=== PATIENT | female | born 1965 | race Hispanic/Latino ===

== ENCOUNTER 2019-08-03 09:49 | Emergency (ER) | payer OTHER, SELFPAY ==
[2019-08-03 10:14] VITALS: BP 131/85; PULSE 90; RESP 16; TEMP 36.9; O2SAT 99
--- NOTE | 2019-08-03 10:42 | ED.URI ---
HPI - URI/Sore Throat General Chief Complaint: Upper Respiratory Infection Stated Complaint: SWOLLEN THROAT Time Seen by Provider: 08/03/19 10:42 Source: patient Mode of arrival: ambulatory Limitations: no limitations History of Present Illness HPI Narrative: A 54 y/o female, who is a nonsmoker/nondrinker, presents to with c/o a cough for 1 week. Pt notes that she has a PMHx of asthma and has been using her inhaler at home. 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 Pt woke up suddenly at 2:00 AM this morning and felt like my trachea was closed. Pt experienced difficulty swallowing and SOB at this time, but this has since resolved. Pt is not around any pets or smokers at home. Pt took Benadryl last night. She denies a sore throat, hoaresness, rash , wheeze, Cp , calf pain/ edema and recently being on steroids. Pertinent past history: asthma Onset (ago): week(s) (1) Treatments prior to arrival: other (Benadryl) Related Data Home Medications Medication Instructions Recorded Confirmed albuterol sulfate 90 mcg INHALATION QID 08/03/19 08/03/19 losartan 50 mg PO DAILY 08/03/19 08/03/19 promethazine-DM 6.25 ml PO BID 08/03/19 08/03/19 Allergies Allergy/AdvReac Type Severity Reaction Status Date / Time No Known Allergies Allergy Unverified 08/03/19 10:10 Review of Systems Review of Systems: Narrative: General/Constitutional: Denies: weight loss,fever Eyes: Denies: Redness,discharge Ears/Nose/Throat: Reports: difficulty swallowing (resolved); Denies: Epistaxis,ear discharge, sore throat Respiratory: Reports: a cough, SOB (resolved); Denies: Hemoptysis Gastrointestinal: Denies: Vomiting, Bleeding-rectal Skin: Denies: Lumps, eruption Neurologic: Denies: Focal Weakness,Sz Hematologic: Denies: Petechiae/Purpura Psychiatric: Denies: Suicidal ideation All systems reviewed & are unremarkable except as noted in HPI and below PMFSH Past Medical History Medical History (Updated 08/03/19 @ 11:05 by Ana Paula Abebe) Asthma HTN (hypertension) Surgical History Surgical History Previous section x4 Social History Social History (Updated 08/03/19 @ 11:04 by Ana Paula Abebe) Smoking status: Never smoker Alcohol intake: never Comments PCP: Dr. Tee At time of signature, agree with nursing past medical, surgical, social and family history. There is no relevant family history pertinent to the presenting complaint Exam Narrative: Exam Narrative: General Appearance: Well appearing, Well nourished EYE: PERRLA, Conjunctiva clear Ears: Auditory canal normal, TM normal Nose: Rhinorrhea, Mucousal erythema Mouth/Throat: MM moist, Uvula midline, Pharyngeal erythema Neck: Supple, No adenopathy Respiratory: No respiratory distress, Breath sounds equal, Clear to auscultation Cardiovascular: RRR, No JVD Musculoskeletal: Non tender, Normal strength Skin: Warm, Dry Neurological: A&O x3, CN II-XII intact Psychiatric: Normal mood, Normal affect Course Vital Signs Vital signs: Vital Signs Temperature 98.5 F 08/03/19 10:14 Pulse Rate 90 08/03/19 10:14 Respiratory Rate 16 08/03/19 10:14 Blood Pressure 131/85 08/03/19 10:14 Pulse Oximetry 99 08/03/19 10:14 Temperature 98.5 F 08/03/19 10:14 Pulse Rate 90 08/03/19 10:14 Respiratory Rate 16 08/03/19 10:14 Blood Pressure 131/85 08/03/19 10:14 Pulse Oximetry 99 08/03/19 10:14 MDM - URI/Sore Throat Lab Data Labs: Influenza A Screen Negative Reference Range: Negative Influenza B Screen Negative Reference Range: Negative Discharge Plan Discharge Clinical Impression: History of asthma Upper respiratory infection Qualifiers: URI type: acute laryngotracheitis Qualified Code(s): J04.2 - Acute laryngotracheitis Patient Disposition: Home, Self-Care Condition: Stable Instr
== END 2019-08-03 11:03 | disposition home or self-care (01) ==
PROVIDERS: Emergency Provider Emergency Medicine; PCP Internal Medicine
DX: J04.2 Acute laryngotracheitis (principal); J45.909 Unspecified asthma, uncomplicated; I10 Essential (primary) hypertension
CPT/HCPCS: 87804; 99213; G0463

== ENCOUNTER → 2020-09-23 08:27 | Outpatient (CLI) | payer OTHER, SELFPAY ==
--- NOTE | ~2020-09-23 | US_ITS ---
EXAMINATION: US pelvic complete w TV DATE: 09/23/2020 11:11 INDICATION: Lower abdominal pain and fullness Comparison:No prior studies for comparison. TECHNIQUE: Multiple transabdominal and endovaginal sonographic images of the pelvis performed. FINDINGS: The uterus measures 10.5 x 4.6 x 6.4 cm. The endometrial complex measures 8 mm. The right ovary measures 2.7 x 2 x 2.3 cm and the left ovary measures 1.9 x 1.5 x 1.9 cm. There are small follicles in each ovary. Normal doppler signal in both ovaries. There is no free fluid in the pelvis. There are no abnormal masses seen on either side. IMPRESSION: 1. Unremarkable pelvic ultrasound. Reviewed, dictated and finalized at location B.
--- NOTE | ~2020-09-23 | MMUS_ITS ---
EXAMINATION: MM diagnostic ken BI w moreno, US breast RT limited HISTORY: Follow-up for probably benign right breast mass, patient was due 12 months ago for follow-up . TECHNIQUE: Craniocaudal, mediolateral, and mediolateral oblique 3-D tomosynthesis images of the breas ts were performed and synthetic 2-D images were generated. Spot compression views of the right breast are also obtained. CAD analysis was submitted and interpreted. High resolution limited right breast ultrasound was performed. COMPARISON: 02/26/2019, 04/28/2012 BREAST PARENCHYMAL COMPOSITION: There are scattered areas of fibroglandular density. FINDINGS: MAMMOGRAPHIC FINDINGS: Right breast: There is a stable 1.3 x 0.7 cm oval, obscured, equal density mass in the middle third o f the upper inner quadrant of the breast at the 1:00 location 5 cm from the nipple. No suspicious arc hitectural distortion or calcification are identified. Left breast: There is no evidence of suspicious mass, calcification, or architectural distortion to suggest malignancy. There has been no suspicious interval change. ULTRASOUND: There are clustered microcysts at the 1:00 location 5 cm from the nipple without significant change s juan c the prior examination 18 months ago. IMPRESSION: 1. No mammographic or sonographic evidence of malignancy. 2. Recommend routine screening mammography in one year. BI-RADS Category 2: Benign finding(s). Reviewed, dictated and finalized at location A. IMPRESSION: 1. No mammographic or sonographic evidence of malignancy. 2. Recommend routine screening mammography in one year. BI-RADS Category 2: Benign finding(s).
== END ==
PROVIDERS: PCP Internal Medicine; Visit Provider Internal Medicine
DX: N60.01 Solitary cyst of right breast (principal); R10.30 Lower abdominal pain, unspecified
CPT/HCPCS: 76642; 76830; 76856; 77062; 77066; G0279

== ENCOUNTER 2020-10-29 09:08 | Outpatient (CLI) | payer OTHER, SELFPAY ==
--- NOTE | 2020-10-29 | EST_ITS ---
Patient Info Name: Mouna Cavazos Age: 55 years : 1965 Gender: Female Ht: 61 in Wt: 210 lbs BSA: 2.08 m2 HR: 76 bpm BP: 113 / 69 mmHg Heart Rhythm: Sinus Rhythm Exam Date: 10/29/2020 9:52 AM Exam Location: [facility] Pulmonary Patient Status: Outpatient Admit Date: 10/29/2020 Staff Ordering Physician: RandalPoonam MD Environmental Engineering Assistant: DP Attending Provider: RandalPoonam MD Exercise Technologist: Leighann Dillard RDCS Exercise Physician: Prashanth Stafford DO Exam Type: CA stress echo Study Info Indications R94.31 - Abnormal electrocardiogram ECG EKG Treadmill exercise stress echocardiogram is performed. Summary 1. 1. Negative Burak exercise stress test for ischemic ST changes by ECG criteria. 2. 2. Reduced functional capacity, achieving 8 METs of workload. 3. 3. Appropriate HR response to exercise. 4. 4. Appropriate HR recovery at 1 minute post exercise. 5. 5. Negative stress echocardiogram for ischemia by wall motion analysis. 6. 6. Patient informed of the above results. Stress Echo Findings Left Ventricle Appropriate increase in LV endocardial thickening with systole. Appropriate augmentation of contractility with systole. No wall motion abnormality. Left Ventricle Normal LV systolic function, no wall motion abnormality. Protocol: Burak Stress ECG Details Stage: REST Duration (min): 5 min : 21 sec Speed (mph): 0.0 Grade (%): 0 HR (bpm): 79 SBP (mmHg): 143 DBP (mmHg): 54 METS: --- Stage: REST Duration (min): 12 min : 22 sec Speed (mph): 0.0 Grade (%): 0 HR (bpm): 88 SBP (mmHg): 113 DBP (mmHg): 69 METS: --- Stage: REST Duration (min): 27 min : 55 sec Speed (mph): 0.0 Grade (%): 0 HR (bpm): 82 SBP (mmHg): 113 DBP (mmHg): 69 METS: --- Stage: STAGE 1 Duration (min): 1 min : 0 sec Speed (mph): 1.7 Grade (%): 10 HR (bpm): 123 SBP (mmHg): 113 DBP (mmHg): 69 METS: --- Stage: STAGE 1 Duration (min): 2 min : 0 sec Speed (mph): 1.7 Grade (%): 10 HR (bpm): 134 SBP (mmHg): 113 DBP (mmHg): 69 METS: --- Stage: STAGE 1 Duration (min): 3 min : 0 sec Speed (mph): 1.7 Grade (%): 10 HR (bpm): 134 SBP (mmHg): 171 DBP (mmHg): 59 METS: --- Stage: STAGE 2 Duration (min): 1 min : 0 sec Speed (mph): 2.5 Grade (%): 12 HR (bpm): 146 SBP (mmHg): 171 DBP (mmHg): 59 METS: --- Stage: STAGE 2 Duration (min): 2 min : 0 sec Speed (mph): 2.5 Grade (%): 12 HR (bpm): 154 SBP (mmHg): 183 DBP (mmHg): 64 METS: --- Stage: STAGE 2 Duration (min): 3 min : 0 sec Speed (mph): 2.5 Grade (%): 12 HR (bpm): 158 SBP (mmHg): 183 DBP (mmHg): 64 METS: --- Stage: STAGE 3 Duration (min): 0 min : 31 sec Speed (mph): 0.0 Grade (%): 0 HR (bpm): 166 SBP (mmHg): 183 DBP (mmHg): 64 METS: --- Stage: RECOVERY Duration (min): 0 min : 28 se
== END 2020-10-29 09:09 | disposition home or self-care (01) ==
LOC: ANHCARD 09:10
PROVIDERS: PCP Internal Medicine; Visit Provider Internal Medicine
DX: R94.31 Abnormal electrocardiogram [ECG] [EKG] (principal)
CPT/HCPCS: 93351

== ENCOUNTER → 2020-11-25 08:49 | Outpatient (CLI) | payer OTHER, SELFPAY ==
--- NOTE | ~2020-11-25 | XR_ITS ---
EXAMINATION: XR knee RT min 4V DATE: 11/25/2020 09:20 INDICATION: Right knee pain. TECHNIQUE: 4 views of right knee were obtained. COMPARISON: Right tibia and fibula radiographs 07/30/2008 FINDINGS: There is varus angulation at the knee. No fracture. There is moderate osteoarthritis of med ial compartment and mild osteoarthritis of lateral and patellofemoral compartments. There is a small knee joint effusion. There is a 3 mm loose body in the intercondylar notch. IMPRESSION: 1. Moderate right knee osteoarthritis. 2. Small right knee joint effusion with loose body. Reviewed, dictated and finalized at location A.
--- NOTE | ~2020-11-25 | XR_ITS ---
EXAMINATION: XR knee LT min 4V DATE: 11/25/2020 09:20 INDICATION: Left knee pain. TECHNIQUE: 4 views of left knee were obtained. COMPARISON: None. FINDINGS: Bone alignment is normal. No fracture. There is mild tricompartmental osteoarthritis. There is a moderate-sized knee joint effusion. IMPRESSION: 1. Mild left knee osteoarthritis. 2. Moderate-sized left knee joint effusion. Reviewed, dictated and finalized at location A.
== END ==
PROVIDERS: PCP Internal Medicine; Visit Provider Internal Medicine
DX: M25.561 Pain in right knee (principal); M25.562 Pain in left knee; M17.0 Bilateral primary osteoarthritis of knee; M25.462 Effusion, left knee; M25.461 Effusion, right knee
CPT/HCPCS: 73564

== ENCOUNTER 2022-12-04 01:35 | Emergency (ER) | payer BC, SELFPAY ==
[2022-12-04 01:39] VITALS: BP 147/86; PULSE 127; RESP 16; TEMP 36.3; O2SAT 99
[2022-12-04] MEDS: ONDANSETRON INJ 4 MG/2 ML VIAL IV PUSH (02:43)
[2022-12-04] MEDS: SODIUM CHLORIDE 0.9% IV 1,000 ML 999 ML IV CONT ×2 (02:43)
[2022-12-04 02:58] LABS: Basophils Absolute Auto 0.1 K/mm3 (0.0-0.1); Basophils Percent Auto 0.5 % (0.2-1.2); Eosinophils Absolute Auto 0.1 K/mm3 (0-0.3); Eosinophils Percent Auto 0.6 % (0-4.4); Hemoglobin 14.6 g/dL (12.0-15.0); Immature Granulocyte Absolute 0.06 K/mm3 (0.00-0.031); Immature Granulocyte Percent A 0.4 % (0-0.5); Lymphocytes Absolute Auto 0.57 K/mm3 (0.9-3.2); Lymphocytes Percent Auto 4.2 % (18.3-44.2); Mean Corpuscular Hemoglobin 28.3 pg (26-34); Mean Corpuscular Volume 83.5 fl (80-100); Mean Platelet Volume 11.5 fl (7.4-10.4); Monocytes Absolute Auto 0.6 K/mm3 (0.1-0.6); Monocytes Percent Auto 4.7 % (2.6-8.5); Neutrophils Absolute Auto 12.1 K/mm3 (1.3-6.7); Neutrophils Percent Auto 89.6 % (45.5-73.1); Platelet Count Result 313 k/mm3 (150-375); Red Blood Count 5.15 M/mm3 (4.2-5.4); Red Cell Distribution Width 13.9 % (11.5-14.5); White Blood Count 13.6 K/mm3 (4.5-10.0)
--- NOTE | 2022-12-04 03:22 | ED.GENADULT ---
HPI - General Adult General Chief complaint: Nausea/Vomiting/Diarrhea Stated complaint: n/v Time Seen by Provider: 12/04/22 01:59 History of Present Illness HPI narrative: Patient is a 57-year-old female who presents the emergency department with chief complaint of nausea and vomiting patient reports that she is visiting her son who is currently in the hospital for C. difficile colitis the patient reports she was sitting in the room and had sudden onset of nausea and vomiting and had multiple bouts of vomiting. The patient reports that she does has cramping in her abdomen reports that she is had no diarrhea since the symptoms started. Patient reports no fever Related Data Home Medications Medication Instructions Recorded Confirmed albuterol sulfate 90 mcg/actuation 90 mcg inhalation QID 08/03/19 08/03/19 aerosol inhaler losartan 50 mg tablet 50 mg PO DAILY 08/03/19 08/03/19 promethazine-DM 6.25 mg-15 mg/5 mL 6.25 ml PO BID 08/03/19 08/03/19 oral syrup Allergies Allergy/AdvReac Type Severity Reaction Status Date / Time No Known Allergies Allergy Verified 12/04/22 01:36 Review of Systems Review of Systems: A 10 system review of systems was completed on the patient and is negative except for what is stated in the HPI. Nursing and ancillary documentation was reviewed. PMFSH Past Medical History Medical History Asthma HTN (hypertension) Surgical History Surgical History Previous section x4 Family History Family History Father Hypertension Family history of elevated blood lipids Grandparent Hypertension Social History Social History Smoking status: Never smoker Alcohol intake: never Exam Narrative: GENERAL: Well-appearing, well-nourished, and in no acute distress. HEAD: Normocephalic, atraumatic. EYES: PERRLA and EOMI. ENT: Nares clear, no rhinorrhea or epistaxis. Mucous membranes moist. NECK: Supple. CHEST: Clear to auscultation. No respiratory distress. HEART: Tachycardic rate and rhythm. No murmur heard. Normal peripheral pulses. ABDOMEN: Soft, nontender, nondistended, normal active bowel sounds. EXTREMITIES: Normal range of motion. No edema. SKIN: Warm, dry, no rash. NEURO: No focal deficits. Alert and oriented x3. PSYCH: Normal mood and affect. Course Vital Signs Vital signs: Vital Signs Temperature 36.3 C L 12/04/22 01:39 Pulse Rate 127 H 12/04/22 01:39 Respiratory Rate 16 12/04/22 01:39 Blood Pressure 147/86 H 12/04/22 01:39 Pulse Oximetry 99 12/04/22 01:39 Oxygen Delivery Room Air 12/04/22 01:39 Temperature 36.3 C L 12/04/22 01:39 Pulse Rate 127 H 12/04/22 01:39 Respiratory Rate 16 12/04/22 01:39 Blood Pressure 147/86 H 12/04/22 01:39 Pulse Oximetry 99 12/04/22 01:39 Oxygen Delivery Room Air 12/04/22 01:39 Medical Decision Making Vital Signs Vital Signs: Vital Signs Temperature 36.3 C L 12/04/22 01:39 Pulse Rate 127 H 12/04/22 01:39 Respiratory Rate 16 12/04/22 01:39 Blood Pressure 147/86 H 12/04/22 01:39 Pulse Oximetry 99 12/04/22 01:39 Oxygen Delivery Room Air 12/04/22 01:39 Temperature 36.3 C L 12/04/22 01:39 Pulse Rate 127 H 12/04/22 01:39 Respiratory Rate 16 12/04/22 01:39 Blood Pressure 147/86 H 12/04/22 01:39 Pulse Oximetry 99 12/04/22 01:39 Oxygen Delivery Room Air 12/04/22 01:39 Lab Data 12/04/22 02:47 12/04/22 02:47 Labs: Lab Results 12/04/22 12/04/22 12/04/22 Range/Units 02:46 02:47 03:45 WBC 13.6 H (4.5-10.0) K/mm3 RBC 5.15 (4.2-5.4) M/mm3 Hgb 14.6 (12.0-15.0) g/dL Hct 43.0 (37.0-47.0) % MCV 83.5 (80-100) fl MCH 28.3 (26-34)
[2022-12-04 03:24] LABS: Lactic Acid Reflex 3.5 mmol/L (0.7-2.0)
[2022-12-04 03:33] LABS: Alanine Aminotransferase 38 U/L (6-35); Albumin Level 4.3 g/dL (3.5-5.1); Alkaline Phosphatase 101 U/L (38-126); Anion Gap 8 mmol/L (8-16); Aspartate Amino Transferase 28 U/L (14-36); Bilirubin,Total 0.9 mg/dL (0.2-1.3); Blood Urea Nitrogen 22 mg/dL (7-17); Calcium 8.8 mg/dL (8.4-10.2); Carbon Dioxide 32 mmol/L (22-30); Chloride 99 mmol/L (98-107); Estimated CRCL calculation 69 ml/min; Estimated Glomerular Filt Rate > 60; Glucose 143 mg/dL (65-110); Lipase 56 U/L (23-300); Magnesium 1.6 mg/dL (1.6-2.3); Potassium 3.1 mmol/L (3.4-5.0); Sodium 139 mmol/L (137-145)
[2022-12-04 03:57] LABS: Appearance Urine Clear (Clear); Bacteria Urine 4+ /hpf; Bilirubin Urine Negative (Negative); Blood Urine 1+ (Negative); Color Urine Yellow (Yellow); Glucose Urine UA Negative (Negative); Ketones Urine Negative (Negative); Leukocyte Esterase Ur Negative LEU/UL (Negative); Nitrate Urine Positive (Negative); Non Pathogenic Casts 0-2; Protein Urine Negative (Negative); Specific Grav Ur 1.022 (1.001-1.035); Squamous Epithelial Cell Urine None seen /hpf (Few); Urobilinogen Urine 0.2 mg/dL (<2.0); WBC Urine 0-5 /hpf
[2022-12-04 04:12] LABS: Add Urine Microscopic? YES
[2022-12-04] MEDS: MAGNESIUM SULF 2 GM/WATER 50ML 2 GM/50 ML BAG IVPB (04:53)
[2022-12-04 05:54] VITALS: BP 122/67; PULSE 109; RESP 17; O2SAT 100
[2022-12-04 05:56] LABS: Reflex Lactic Acid Yes or No Add Lactic
== END 2022-12-04 06:55 | disposition home or self-care (01) ==
PROVIDERS: Emergency Provider Emergency Medicine; PCP Internal Medicine
DX: R11.2 Nausea with vomiting, unspecified (principal); E83.42 Hypomagnesemia; E86.0 Dehydration; I10 Essential (primary) hypertension; J45.909 Unspecified asthma, uncomplicated; Z79.51 Long term (current) use of inhaled steroids
CPT/HCPCS: 36415; 80053; 81001; 83605; 83690; 83735; 85025; 96361; 96365; 96375; 99284; J2405; J3475; J7030

== ENCOUNTER 2023-06-28 09:47 | Outpatient (CLI) | payer BC, SELFPAY ==
--- NOTE | 2023-07-23 16:18 | WPDSLEEPSTUD ---
Sleep Study Date of Study: 06/28/23 Ordering Provider: Poonam Tee MD Interpreting Physician: Chioma Navas MD Sleep Study Type: CPAP Titration Height: 1.55 m Weight: 94.347 kg Body Mass Index: 39.2 Neck Circumference (inches): 16 [place]: 0 Reason for Sleep Study Home sleep test 05/20/2023 using a black stone device, apnea-hypopnea index 72.1 extremely high. Average saturation 93%, lowest desaturation 70%. The patient had 67% obstructive apneas and 33% central apneas on the home sleep test. The patient spent 10% of the night 56 minutes below 88% saturation. She is here for a CPAP titraiton. Sleep History Mouna Waterman is a 58-year-old woman with severe mixed sleep apnea, AHi 72.1, desaturation to 79%. She rarely awakens from sleep short of breath. She never wakes at night with heartburn, belching or coughing.??She constantly snores, constantly snores loudly enough that others complain. She occasionally has trouble sleeping when she has a cold. She never wakes up gasping for breath during the night. She occasionally has breathing problems at night reported to her by her son. She never sweats excessively at night. She sometimes frequently notices her heart pounding or beating irregularly during the night. She never falls asleep during the day. She never falls asleep involuntarily, never falls asleep while driving. She never experiences loss of muscle tone with strong emotion. She never feels paralyzed on waking or falling asleep. She never experiences vivid dreams upon waking or falling asleep. She never feels afraid of going to sleep. She rarely has nightmares. She very rarely recalls her dreams. She never has thoughts racing through her mind. She occasionally feels sad or depressed. She occasionally feels anxiety. She occasionally notices parts of her body jerk. She never kicks during the night. She never feels crawling or aching feelings in her legs. She never feels leg pain at night. She never has morning jaw pain, and never grinds her teeth at night. She rarely feels bothered by pain during the day, is rarely awakened by low back pain during the night. She never wakes up feeling stiff in the morning, never wakes feeling sore or achy in the morning. She never awakens with pain in her neck, spine, or joints. Normal bedtime is 11:00 p.m., not falling asleep very quickly. It usually takes time for her to fall asleep. She has anxiety. She wakes up most nights to go to the bathroom but is able to return to sleep quickly. Her normal wake time is around 6 in the morning. She estimates getting between 6 or 7 hours of sleep at night. On weekends she may go to sleep later, midnight or 1:00 a.m. and sometimes sleeps later on the weekends. She does not take naps in the afternoon or evening. Naps do not help her. She feels better in the morning compared to other times of day.. Habits:??Tobacco: Never smoker Caffeine: 1-2 cups per day. Alcohol: none Recreational substances: none PMFSH Past Medical History Medical History Asthma Claustrophobia HTN (hypertension) Obstructive sleep apnea Surgical History Surgical History History of back surgery x 3 Previous section x4 Family History Family History Father Hypertension Family history of elevated blood lipids Grandparent Hypertension Social History Social History Smoking status: Never smoker Alcohol intake: never Medications Home Medications Medication Instructions Recorded Confirmed Type albuterol sulfate 90 mcg/actuation 90 mcg inhalation QID 08/03/19 08/03/19 History aerosol inhaler albuterol sulfate 90 mcg/actuation 2 puff inhalation QID PRN 08/03/19 Rx aerosol inhaler (Ventolin HFA) shortness
[2023-07-24 12:04] VITALS: BMI 39.2
== END 2023-06-29 06:14 | disposition home or self-care (01) ==
PROVIDERS: PCP Internal Medicine; Visit Provider Internal Medicine
DX: G47.33 Obstructive sleep apnea (adult) (pediatric) (principal); G47.37 Central sleep apnea in conditions classified elsewhere; Z68.39 Body mass index [BMI] 39.0-39.9, adult
CPT/HCPCS: 95811

== ENCOUNTER 2023-11-21 11:33 | Outpatient (CLI) | payer BC, SELFPAY ==
--- NOTE | ~2023-11-21 | MM_ITS ---
EXAMINATION: MM screening [facility] BI w moreno HISTORY: Screening TECHNIQUE: Craniocaudal and mediolateral oblique 3-D tomosynthesis images were obtained and synthetic 2-D images were generated. CAD analysis was submitted and interpreted. COMPARISON: Comparison to multiple prior studies sequentially, with oldest reviewed study dated 03/25. BREAST PARENCHYMAL COMPOSITION: Not dense: There are scattered areas of fibroglandular density. FINDINGS: There is no evidence of suspicious mass, calcification, or architectural distortion to sugg est malignancy in either breast. There has been no suspicious interval change. IMPRESSION: 1. No mammographic evidence of malignancy. 2. Recommend routine screening mammography in one year. BI-RADS Category 1: Negative Reviewed, dictated and finalized at location B.
== END 2023-11-21 11:34 ==
LOC: MICIMG 11:37
PROVIDERS: PCP Internal Medicine; Visit Provider Internal Medicine
DX: Z12.31 Encounter for screening mammogram for malignant neoplasm of breast (principal)
CPT/HCPCS: 77063; 77067

== ENCOUNTER 2023-12-08 11:10 | Outpatient (CLI) | payer BC, SELFPAY ==
--- NOTE | ~2023-12-08 | US_ITS ---
Thyroid ultrasound. Clinical History: Thyroid nodule Findings: Real-time sonography of the thyroid gland was performed. The right lobe measures 3.4 x 1.3 x 1.2 cm. The left lobe measures 2.7 x 1.4 x 1.4 cm. The isthmus is 3 mm in AP diameter. No thyroid nodule seen. Impression: Unremarkable exam. Reviewed, dictated and finalized at location . Impression: Unremarkable exam.
== END 2023-12-08 11:11 ==
PROVIDERS: PCP Internal Medicine; Visit Provider Internal Medicine
DX: E04.1 Nontoxic single thyroid nodule (principal)
CPT/HCPCS: 76536